=== PATIENT | male | born 1960 | race Caucasian/White ===

== ENCOUNTER 2017-11-20 07:08 | Day surgery (SDC) | payer SELFPAY ==
[2017-11-20] VITALS (8 sets, daily range): BP systolic 106–139; BP diastolic 62–92; PULSE 69–81; RESP 14–16; TEMP 36.3–36.8; O2SAT 97–100; BMI 25.1
--- NOTE | 2017-11-20 08:14 | HP.PCM_ITS ---
Problem List (1) Screening for intestinal cancer Status: Acute History of Present Illness Date of Admission: 11/20/17 The patient is a 57 year old M presents today for screening colonoscopy. He has really never had a previous examination with a colonoscopy. He has no family history of colon cancer or colon polyps. He denies change of bowel habits. No bright red blood per rectum or melena. He enjoys good health. He is not on any chronic medications. He has not had any anesthesia reactions Past Medical History Allergies No Known Allergies Allergy (Verified 11/17/17 09:35) Home Medications: Ambulatory Orders Medication Instructions Recorded [place]-3 Fatty Acids/Fish Oil [Fish 1 each PO DAILY 11/17/17 Oil 1,000 mg Capsule] Vitamin B Complex 1 each PO DAILY 11/17/17 Smoking Status: Never smoker Tobacco Use: Non-smoker Review of Systems Constitutional: Denies: Weight Change Eyes: Denies: Blurred vision, Vision Change HEENT: Denies: Ear Pain, Eye Pain Cardiovascular: Denies: Chest Pain, Claudication Respiratory: Denies: Cough, Shortness of Breath Gastrointestinal: Denies: Hematemesis, Hematochezia Genitourinary: Denies: Dysuria, Hematuria Musculoskeletal: Denies: Leg Pain Skin: Denies: Jaundice Neurological: Denies: Confusion Psychiatric: Denies: Depression Endocrine: Denies: Change in Body Habitus Hematologic/ Lymphatic: Denies: Easy Bleeding VTE Information - Inpt Only VTE Present on Admission: No Patient Problems: Active and Suspected Problems Screening for intestinal cancer (Acute) - Physical Exam General: Alert, Oriented x3, Cooperative, No apparent distress HEENT: Atraumatic Oral: Moist Mucosa Neck: Supple Lungs: Clear to auscultation Cardiovascular: Regular rate Abdomen: Bowel Sounds Present Extremities: No clubbing Skin: No rashes Musculoskeletal: No Tenderness to Palpation of Joints or Extremities Lymphatic: No Cervical, Supraclavicular, or Inguinal Adenopathy Neurological: Cranial nerves II-XII grossly intact Psych/Mental Status: Normal Affect Vital Signs Temp Pulse Resp BP Pulse Ox 97.4 F L 81 14 139/92 H 100 11/20/17 07:36 11/20/17 07:36 11/20/17 07:36 11/20/17 07:36 11/20/17 07:36 Oxygen Delivery Method Room Air Weight: 170 lb 3.15 oz Body Mass Index (BMI) 25.1 Assessment/Plan Active and Suspected Problems Screening for intestinal cancer (Acute) Recommended the patient a screening colonoscopy with possible biopsy or polypectomy is indicated. He is aware of the technique, benefits, risks, alternatives. He has had an opportunity to ask and have questions answered. He has performed his bowel preparation. We will proceed as indicated. Cc: Dr. Rolando Reed M.D., F.A.C.S.
--- NOTE | 2017-11-20 08:39 | PCM.OPRPT ---
Problem List (1) Screening for intestinal cancer Status: Acute Report of Operation Date of Procedure: 11/20/17 Pre-Operative Diagnosis: Screening for intestinal cancer Post-Operative Diagnosis: Normal colonoscopy Surgery/Procedure Performed:: Colonoscopy Description of Surgical Findings:: Timeout and informed consent was obtained. 57-year-old gentleman was taken to the endoscopy suite. He was placed in a left lateral decubitus position. Throughout the procedure he received 1 mg of glucagon and 100 mg of Demerol and 4.5 mg of Versed. Digital rectal exam performed. 3+ enlarged smooth prostate. No mass lesions. Flexible colonoscope inserted the rectum advanced to a tortuous sigmoid colon. With some effort the scope was advanced through the transverse colon with transabdominal pressure to the ascending colon the patient needed to be placed supine to get the scope to go to the cecum. The patient has a elongated very lax colon. The cecum was cecal valve however was achieved. Bowel prep was good. The scope was carefully withdrawn from the cecum ascending colon transverse colon descending colon and sigmoid colon. Other than for the tortuosity no acute findings. The scope was retroflexed within the rectum the anorectal verge inspected this too was not remarkable. Excess fluid and air was aspirated free the procedure was completed he tolerated it well. Impression Normal colonoscopy 3+ enlarged prostate She will be encouraged to follow-up with Dr. Davida Marshall regarding the prostatic hypertrophy. The patient has no personal risk factors and so next screening colonoscopy would be in 10 years. He is not previously had a full colonoscopy Cc: Dr[place] [address]. Scope was inserted at 0819. It was reached at 0831.16. The procedure was completed at 0837.34 Sharif Reed M.D., F.A.C.S. Type of Anesthesia:: IV Sedation
== END 2017-11-20 09:45 | disposition home or self-care (01) ==
LOC: EN 07:09 → AC 07:25
PROVIDERS: Family Provider Internal Medicine; PCP Internal Medicine; Visit Provider Surgery
PROC: 0DJD8ZZ Inspection of Lower Intestinal Tract, Via Natural or Artificial Opening Endoscopic (ICD-10-PCS; CPT 45378; principal; 2017-11-20 08:10)
DX: Z12.11 Encounter for screening for malignant neoplasm of colon (principal); N40.0 Benign prostatic hyperplasia without lower urinary tract symptoms
CPT/HCPCS: 45378; 99152; 99153; J7120; J1610

== ENCOUNTER → 2019-04-26 09:18 | Outpatient (CLI) | payer SELFPAY ==
[2017-11-20 07:36] VITALS: BMI 25.1
[2019-04-26 10:37] LABS: Hematocrit 43.7 % (40-54); Hemoglobin 14.5 g/dL (13.0-16.5); Mean Corp Hgb Conc 33.2 g/dL (32-36); Mean Corpuscular Hgb 30.9 pg (27.0-32.0); Mean Corpuscular Volume 93.2 fL (80-94); Mean Platelet Vol. 8.4 fl (6.2-12.0); Platelet Count 282 K/mm3 (150-450); RBC Distribution Width SD 44.3 fl (35.1-43.9); Red Blood Count 4.69 M/mm3 (4.6-6.2); White Blood Count 6.3 K/mm3 (4.4-11.0)
[2019-04-26 10:58] LABS: Hemoglobin A1c 5.6 % (4.2-6.3)
[2019-04-26 11:37] LABS: ALB/GLOB Ratio 1.1 RATIO (0.9-2.4); AST(SGOT) 30 U/L (15-37); Alanine Aminotransfer ALT/SGPT 35 U/L (16-61); Albumin, Serum 3.6 g/dL (3.2-5.0); Alkaline Phosphatase 39 U/L (45-117); Anion Gap 6 (5-15); BUN 15 mg/dL (7-18); BUN/Creat Ratio 18.9 RATIO (10-20); Calcium,Total 8.5 mg/dL (8.5-10.1); Chloride 105 mmol/L (98-107); Cholesterol 214 mg/dL (200); Creatinine, Serum 0.79 mg/dL (0.70-1.30); EST Glomerular Filtration Rate 106 mL/min (>60); Est Glom Filt Rate - Afr Amer 128 mL/min (>60); Globulin 3.2 g/dL (2.2-4.2); Glucose 95 mg/dL (74-106); High Density Lipoprotein 56 mg/dL; PSA,Total - Annual Screen 1.13 ng/mL (0.00-4.00); Potassium 3.9 mmol/L (3.5-5.1); Protein, Total 6.8 g/dL (6.4-8.2); Sodium Level 139 mmol/L (136-145); Triglycerides 101 mg/dL; Very Low Density Lipoprotein 20 mg/dL (5-40)
[2019-05-02 14:25] LABS: Free T3 2.5 pg/mL (2.18-3.98); T4 Free Direct 0.63 ng/dL (0.76-1.46)
== END ==
LOC: LAB.FUTURE 09:19 → LAB 04-27 07:08
PROVIDERS: Family Provider Internal Medicine; PCP Internal Medicine; Referring Provider Internal Medicine; Visit Provider Internal Medicine
DX: Z00.00 Encounter for general adult medical examination without abnormal findings (principal); Z13.220 Encounter for screening for lipoid disorders; R05 Cough; N40.0 Benign prostatic hyperplasia without lower urinary tract symptoms; Z13.1 Encounter for screening for diabetes mellitus
CPT/HCPCS: 36415; 80053; 80061; 83036; 84153; 84439; 84443; 84481; 85027; G0103

== ENCOUNTER → 2019-06-23 09:01 | Outpatient (CLI) | payer SELFPAY ==
[2017-11-20 07:36] VITALS: BMI 25.1
[2019-06-23 10:15] LABS: T4 Free Direct 0.66 ng/dL (0.76-1.46)
[2019-06-28 14:14] LABS: T3 Total - Triiodothyronine 0.99 ng/mL (0.6-1.81)
== END ==
PROVIDERS: Family Provider Internal Medicine; PCP Internal Medicine; Referring Provider Internal Medicine; Visit Provider Internal Medicine
DX: R79.89 Other specified abnormal findings of blood chemistry (principal)
CPT/HCPCS: 36415; 84439; 84443; 84480

== ENCOUNTER → 2019-07-07 08:50 | Outpatient (CLI) | payer SELFPAY ==
--- NOTE | 2019-07-07 08:55 | US_ITS ---
STUDY: THYROID ULTRASOUND REASON FOR EXAM: Male, 59 years old. HYPOTHYROIDISM TECHNIQUE: Ultrasound evaluation of the thyroid was performed with real-time and static taylor-scale imaging. COMPARISON: None. FINDINGS: RIGHT LOBE: The right lobe of the thyroid gland measures 4.2 x 1.0 x 1.4 cm. There is a homogeneous echotexture. There is a 1.0 x 0.6 x 0.6 cm simple cyst within the lower pole of the right lobe of the thyroid gland. LEFT LOBE: The left lobe of the thyroid gland measures 3.8 x 1.1 x 1.3 cm. There is a homogeneous echotexture. There are no demonstrated solid, cystic or complex lesions. ISTHMUS: The isthmus measures 3.0 millimeters. US/Thyroid IMPRESSION: No solid nodules identified. 1.0 x 0.6 x 0.6 cm simple cyst within the right lobe of the thyroid gland. Electronically Signed: Joyce Sherman MD at 17:08 EST Tel , Service support ,
== END ==
PROVIDERS: Family Provider Internal Medicine; PCP Internal Medicine; Referring Provider Internal Medicine; Visit Provider Internal Medicine
DX: E03.9 Hypothyroidism, unspecified (principal)
CPT/HCPCS: 76536

== ENCOUNTER → 2019-08-12 09:25 | Outpatient (CLI) | payer SELFPAY ==
--- NOTE | 2019-08-12 09:32 | RAD_ITS ---
HISTORY: COUGH X4-5 MONTHS ADDITIONAL HISTORY: None provided. COMPARISON: None TECHNIQUE: Frontal and lateral chest radiographs. Number of images including paperwork: 2 FINDINGS: LUNGS AND PLEURA: No consolidation, mass or pleural effusion. Peribronchial thickening. CARDIAC SILHOUETTE: Unremarkable. MEDIASTINUM AND LAURIE: Unremarkable. UPPER ABDOMEN: Moderate amount of colonic stool in the visualized abdomen. SKELETON AND SOFT TISSUES: No acute findings. OTHER DEVICES AND HARDWARE: Right humeral head suture anchors. RAD/Chest PA and Lateral IMPRESSION: Peribronchial thickening as can be seen with bronchitis and airways disease. at 0040 Reported and signed by: Alma Dixon MD Electronically Signed: Alma Dixon MD at 0:40 EST Tel , Service support ,
== END ==
PROVIDERS: PCP Internal Medicine; Referring Provider Otolaryngology; Visit Provider Otolaryngology
DX: R05 Cough (principal)
CPT/HCPCS: 71046

== ENCOUNTER → 2019-12-09 14:16 | Outpatient (CLI) | payer SELFPAY ==
[2017-11-20 07:36] VITALS: BMI 25.1
[2019-12-09 16:09] LABS: Free T3 2.7 pg/mL (2.18-3.98); T4 Free Direct 0.89 ng/dL (0.76-1.46); Thyroid Stim Hormone (TSH) 4.61 uIU/mL (0.358-3.74)
== END ==
PROVIDERS: Family Provider Internal Medicine; PCP Internal Medicine; Referring Provider Internal Medicine; Visit Provider Internal Medicine
DX: E03.9 Hypothyroidism, unspecified (principal)
CPT/HCPCS: 36415; 84439; 84443; 84481

== ENCOUNTER → 2020-09-25 14:58 | Outpatient (CLI) | payer SELFPAY ==
[2020-09-25 13:29] VITALS: BMI 26.6
[2020-09-25 16:59] LABS: Absolute Lymphocyte Count 2.38 X10^3/uL (0.83-4.51); Absolute Neutrophil Count 3.8 X10^3/uL (2.0-7.7); Basophil# 0.04 X10^3/uL; Basophil% 0.6 % (0-1); Eosinophil# 0.06 X10^3/uL; Eosinophils% 0.9 % (0-5); Hemoglobin 14.9 g/dL (13.0-16.5); Lymphocyte # 2.38 X10^3/ul (4.0); Lymphocyte % 34.7 % (19-41); Mean Corp Hgb Conc 33.1 g/dL (32-36); Mean Corpuscular Hgb 30.3 pg (27.0-32.0); Mean Corpuscular Volume 91.5 fL (80-94); Mean Platelet Vol. 8.6 fl (6.2-12.0); Monocyte# 0.59 X10^3/uL; Monocyte% 8.6 % (0-10); NRBC Flagged by Analyzer 0 % (0-5); Neutrophil # 3.77 X10^3/uL (2.7-7.7); Neutrophil % 55.1 % (47-70); Platelet Count 320 K/mm3 (150-450); RBC Distribution Width CV 12.9 % (11.6-14.6); RBC Distribution Width SD 43.2 fl (35.1-43.9); Red Blood Count 4.92 M/mm3 (4.6-6.2); White Blood Count 6.9 K/mm3 (4.4-11.0)
[2020-09-25 17:17] LABS: Vitamin D,25 Hydroxy 18.8 ng/mL
[2020-09-25 17:21] LABS: ALB/GLOB Ratio 1.2 RATIO (0.9-2.4); AST(SGOT) 41 U/L (15-37); Alanine Aminotransfer ALT/SGPT 41 U/L (16-61); Alkaline Phosphatase 56 U/L (45-117); Anion Gap 5 (5-15); BUN 11 mg/dL (7-18); BUN/Creat Ratio 13.3 RATIO (10-20); Calcium,Total 8.9 mg/dL (8.5-10.1); Chloride 103 mmol/L (98-107); Cholesterol 244 mg/dL (200); Creatinine, Serum 0.83 mg/dL (0.70-1.30); EST Glomerular Filtration Rate 100 mL/min (>60); Est Glom Filt Rate - Afr Amer 122 mL/min (>60); Free T3 2.4 pg/mL (2.18-3.98); Globulin 3.4 g/dL (2.2-4.2); Glucose 88 mg/dL (74-106); High Density Lipoprotein 55 mg/dL; PSA,Total - Annual Screen 1.39 ng/mL (0.00-4.00); Potassium 4.5 mmol/L (3.5-5.1); Protein, Total 7.4 g/dL (6.4-8.2); Sodium Level 137 mmol/L (136-145); T4 Free Direct 0.68 ng/dL (0.76-1.46); Thyroid Stim Hormone (TSH) 9.41 uIU/mL (0.358-3.74); Triglycerides 110 mg/dL; Very Low Density Lipoprotein 22 mg/dL (5-40)
== END ==
PROVIDERS: PCP Internal Medicine; Referring Provider Internal Medicine; Visit Provider Internal Medicine
DX: E03.9 Hypothyroidism, unspecified (principal); Z12.5 Encounter for screening for malignant neoplasm of prostate; Z13.220 Encounter for screening for lipoid disorders
CPT/HCPCS: 36415; 80053; 80061; 82306; 84153; 84439; 84443; 84481; 85025; G0103

== ENCOUNTER → 2023-04-08 | Outpatient (CLI) | payer SELFPAY ==
[2023-04-08 09:41] LABS: Absolute Lymphocyte Count 2.31 X10^3/uL (0.83-4.51); Absolute Neutrophil Count 3.1 X10^3/uL (2.0-7.7); Basophil# 0.03 X10^3/uL; Basophil% 0.5 % (0-1); Eosinophils% 1.6 % (0-5); Hematocrit 45.9 % (40-54); Hemoglobin 15.2 g/dL (13.0-16.5); Lymphocyte # 2.31 X10^3/ul (0.83-4.51); Lymphocyte % 37.3 % (19-41); Mean Corp Hgb Conc 33.1 g/dL (32-36); Mean Corpuscular Hgb 30.8 pg (27.0-32.0); Mean Corpuscular Volume 93.1 fL (80-94); Mean Platelet Vol. 8.5 fl (6.2-12.0); Monocyte# 0.67 X10^3/uL; Monocyte% 10.8 % (0-10); NRBC Flagged by Analyzer 0 % (0-5); Neutrophil # 3.07 X10^3/uL (2.7-7.7); Neutrophil % 49.5 % (47-70); Platelet Count 304 K/mm3 (150-450); RBC Distribution Width CV 13.1 % (11.6-14.6); RBC Distribution Width SD 44.7 fl (35.1-43.9); Red Blood Count 4.93 M/mm3 (4.6-6.2); White Blood Count 6.2 K/mm3 (4.4-11.0)
[2023-04-08 10:06] LABS: Vitamin D,25 Hydroxy 31.6 ng/mL
[2023-04-08 10:13] LABS: ALB/GLOB Ratio 1.1 RATIO (0.9-2.4); AST(SGOT) 38 U/L (15-37); Alanine Aminotransfer ALT/SGPT 48 U/L (16-61); Albumin, Serum 3.8 g/dL (3.2-5.0); Alkaline Phosphatase 46 U/L (45-117); Anion Gap 2 (5-15); BUN 18 mg/dL (7-18); BUN/Creat Ratio 19.1 RATIO (10-20); Calcium,Total 9.1 mg/dL (8.5-10.1); Chloride 106 mmol/L (98-107); Cholesterol 277 mg/dL (200); Creatinine, Serum 0.94 mg/dL (0.70-1.30); EST Glomerular Filtration Rate 86 mL/min (>60); Est Glom Filt Rate - Afr Amer 104 mL/min (>60); Free T3 2.6 pg/mL (2.18-3.98); Globulin 3.4 g/dL (2.2-4.2); Glucose 99 mg/dL (74-106); High Density Lipoprotein 57 mg/dL; PSA,Total - Annual Screen 2.42 ng/mL (0.00-4.00); Potassium 4.5 mmol/L (3.5-5.1); Protein, Total 7.2 g/dL (6.4-8.2); Sodium Level 137 mmol/L (136-145); T4 Free Direct 0.84 ng/dL (0.76-1.46); Thyroid Stim Hormone (TSH) 6.29 uIU/mL (0.358-3.74); Triglycerides 71 mg/dL; Very Low Density Lipoprotein 14 mg/dL (5-40)
== END | disposition home or self-care (01) ==
PROVIDERS: PCP Internal Medicine; Referring Provider Internal Medicine; Visit Provider Internal Medicine
DX: Z00.00 Encounter for general adult medical examination without abnormal findings (principal); E55.9 Vitamin D deficiency, unspecified; E03.9 Hypothyroidism, unspecified; Z13.220 Encounter for screening for lipoid disorders; Z12.5 Encounter for screening for malignant neoplasm of prostate
CPT/HCPCS: 36415; 80053; 80061; 82306; 84153; 84439; 84443; 84481; 85025; G0103

== ENCOUNTER → 2023-08-13 | Outpatient (CLI) | payer SELFPAY ==
[2023-08-13 09:53] LABS: Free T3 2.4 pg/mL (2.18-3.98); T4 Free Direct 0.63 ng/dL (0.76-1.46); Thyroid Stim Hormone (TSH) 7.84 uIU/mL (0.358-3.74)
== END | disposition home or self-care (01) ==
PROVIDERS: PCP Internal Medicine; Referring Provider Internal Medicine; Visit Provider Internal Medicine
DX: E03.9 Hypothyroidism, unspecified (principal)
CPT/HCPCS: 36415; 84439; 84443; 84481

== ENCOUNTER → 2024-01-01 | Outpatient (CLI) | payer MEDICARE, SELFPAY ==
[2024-01-01 09:00] LABS: Free T3 2.6 pg/mL (2.18-3.98); T4 Free Direct 0.77 ng/dL (0.76-1.46); Thyroid Stim Hormone (TSH) 5.78 uIU/mL (0.358-3.74)
== END | disposition home or self-care (01) ==
PROVIDERS: PCP Internal Medicine; Referring Provider Internal Medicine; Visit Provider Internal Medicine
DX: E03.9 Hypothyroidism, unspecified (principal)
CPT/HCPCS: 36415; 84439; 84443; 84481

== ENCOUNTER → 2024-05-06 | Outpatient (CLI) | payer MEDICARE, SELFPAY ==
[2024-05-06 06:48] LABS: Absolute Lymphocyte Count 2.26 X10^3/uL (0.83-4.51); Absolute Neutrophil Count 3.2 X10^3/uL (2.0-7.7); Basophil# 0.03 X10^3/uL; Basophil% 0.5 % (0-1); Eosinophil# 0.14 X10^3/uL; Eosinophils% 2.3 % (0-5); Hematocrit 45.2 % (40-54); Hemoglobin 14.9 g/dL (13.0-16.5); Lymphocyte # 2.26 X10^3/ul (0.83-4.51); Lymphocyte % 36.3 % (19-41); Mean Corpuscular Hgb 30.4 pg (27.0-32.0); Mean Corpuscular Volume 92.2 fL (80-94); Mean Platelet Vol. 8.3 fl (6.2-12.0); Monocyte% 9.6 % (0-10); NRBC Flagged by Analyzer 0 % (0-5); Neutrophil # 3.18 X10^3/uL (2.7-7.7); Neutrophil % 51.1 % (47-70); Platelet Count 279 K/mm3 (150-450); RBC Distribution Width CV 13.1 % (11.6-14.6); RBC Distribution Width SD 44.3 fl (35.1-43.9); White Blood Count 6.2 K/mm3 (4.4-11.0)
[2024-05-06 08:44] LABS: Vitamin D,25 Hydroxy 25.8 ng/mL
[2024-05-06 09:21] LABS: ALB/GLOB Ratio 1.2 RATIO (0.9-2.4); AST(SGOT) 30 U/L (15-37); Alanine Aminotransfer ALT/SGPT 40 U/L (16-61); Albumin, Serum 3.9 g/dL (3.2-5.0); Alkaline Phosphatase 48 U/L (45-117); Anion Gap 6 (5-15); BUN 20 mg/dL (7-18); BUN/Creat Ratio 20.7 RATIO (10-20); Calcium,Total 9.4 mg/dL (8.5-10.1); Chloride 108 mmol/L (98-107); Cholesterol 254 mg/dL (200); Creatinine, Serum 0.97 mg/dL (0.70-1.30); EST Glomerular Filtration Rate 83 mL/min (>60); Est Glom Filt Rate - Afr Amer 100 mL/min (>60); Free T3 2.7 pg/mL (2.18-3.98); Globulin 3.2 g/dL (2.2-4.2); Glucose 93 mg/dL (74-106); High Density Lipoprotein 55 mg/dL; Potassium 4.3 mmol/L (3.5-5.1); Protein, Total 7.1 g/dL (6.4-8.2); Sodium Level 139 mmol/L (136-145); T4 Free Direct 0.87 ng/dL (0.76-1.46); Triglycerides 103 mg/dL; Very Low Density Lipoprotein 21 mg/dL (5-40)
== END | disposition home or self-care (01) ==
PROVIDERS: PCP Internal Medicine; Referring Provider Internal Medicine; Visit Provider Internal Medicine
DX: Z00.00 Encounter for general adult medical examination without abnormal findings (principal); E03.9 Hypothyroidism, unspecified; E55.9 Vitamin D deficiency, unspecified; Z12.5 Encounter for screening for malignant neoplasm of prostate; E78.5 Hyperlipidemia, unspecified; Z13.220 Encounter for screening for lipoid disorders
CPT/HCPCS: 36415; 80053; 80061; 82306; 84153; 84439; 84443; 84481; 85025; G0103

== ENCOUNTER → 2024-11-14 | Outpatient (CLI) | payer MEDICARE, SELFPAY ==
[2024-11-14 08:23] LABS: Free T3 2.7 pg/mL (2.18-3.98)
== END | disposition home or self-care (01) ==
PROVIDERS: PCP Internal Medicine; Referring Provider Internal Medicine; Visit Provider Internal Medicine
DX: E03.9 Hypothyroidism, unspecified (principal)
CPT/HCPCS: 36415; 84439; 84443; 84481

== ENCOUNTER → 2025-05-29 | Outpatient (CLI) | payer MEDICARE, SELFPAY ==
--- OUTSIDE RECORDS SUMMARY | 2025-05-29 06:38 | XMS RPT_ITS | CCD ---
Author Organization [facility] Care Team Providers Care Breast Puller Name Role Phone NICOLLE AUDRA (VIDEO GAME CREATOR) Unavailable Unavailable Davida Marshall Primary Care Unavailable Davida Marshall Attending Unavailable Davida Marshall Primary Care Unavailable Davida Marshall Attending Unavailable Davida Marshall Attending Unavailable Davida Marshall Referring Unavailable Davida Marshall Primary Care Unavailable Davida Marshall Primary Care Unavailable Davida Marshall Attending Unavailable Davida Marshall Referring Unavailable Davida Marshall Primary Care Unavailable Davida Marshall Attending Unavailable Davida Marshall Referring Unavailable Davida Marshall Primary Care Unavailable Davida Marshall Attending Unavailable Davida Marshall Referring Unavailable Medications Current Medications Medication Drug Class(es) Dates Sig (Normalized) Sig (Original) levothyroxine sodium 0.1 mg oral tablet (10 sources) l-Thyroxine Start: 08-13-2023 take 100 ug by mouth once daily Levothyroxine Active 100 MCG PO DAILY August 13, 2023 2:43pm Start: 04-16-2023 End: 08-13-2023 take 88 ug by mouth once daily Levothyroxine Discontin ued 88 MCG PO DAILY April 16, 2023 8:53am August 13, 2023 2:44pm Start: 09-25-2020 End: 04-16-2023 take 50 ug by mouth once daily Levothyroxine Discontin ued 50 MCG PO DAILY July 25, 2022 3:47pm April 16, 2023 8:54am Completed/Discontinued Medications Medication Drug Class(es) Dates Sig (Normalized) Sig (Original) [place]-3 Fatty Acids-Fish Oil (2 sources) Start: 11-17-2017 End: 09-25-2020 [place]-3 Fatty Acids-Fish Oil Discontinued 1 EACH PO DAILY November 16, 2017 11:00pm September 25, 2020 12:34pm Start: 11-17-2017 End: 09-25-2020 [place]-3 Fatty Acids-Fish Oil Discontinued 1 EACH PO DAILY November 17, 2017 12:00am September 25, 2020 1:34pm Vitamin B Complex (2 sources) Start: 11-17-2017 End: 09-25-2020 Vitamin B Complex Discontinu ed 1 EACH PO DAILY November 16, 2017 11:00pm September 25, 2020 12:34pm Start: 11-17-2017 End: 09-25-2020 Vitamin B Complex Discontinu ed 1 EACH PO DAILY November 17, 2017 12:00am September 25, 2020 1:34pm Problems Active Problems Problem Classification Problem Date Documented Da te Episodic/Chronic Blindness and vision defects (1 source) Visual disturbance; Translations: [Unspecified visual disturbance] 04-16-2023 Episodic Disorders of lipid metabolism (2 sources) Hyperlipidemia, unspecified; Translations: [Hyperlipidemia, unspecified] Onset: 05-11-2024 Chronic Nutritional deficiencies (1 source) Vitamin D deficiency, unspecified; Translations: [Vitamin D deficiency, unspecified] Onset: 05-11-2024 Chronic Open wounds of extremities (2 sources) Laceration of elbow; Translations: [Laceration with foreign body of unspecified elbow, initial encounter] 11-20-2017 Episodic Superficial injury; contusion (2 sources) Contusion, hip and thigh; Translations: [Contusion of unspecified hip, initial encounter] 11-20-2017 Episodic Thyroid disorders (3 sources) Hypothyroidism; Translations: [Hypothyroidism, unspecified] Onset: 11-18-2024 09-25-2020 Chronic Past or Other Problems Problem Classification Problem Date Documented Da te Episodic/Chronic Other screening for suspected conditions (not mental disorders or infectious disease) (3 sources) Patient encounter status; Translations: [Encounter for screening for malignant neoplasm of intestinal tract, unspecified] Onset: 05-11-2024 11-20-2017 Episodic Results Test Name Value Interpretation Reference Range Facility Free T3on 11-14-2024 Free T3 [Mass/Vol] 2.7 pg/mL Normal 2.18-3.98 [facility] Comment on above: Performed By: #### L 501.61699, L501.9520, L506.0400 #### [facility] [address] [place], [address] T4 Free Directon 11-14-2024 T4 FREE DIRECT 1.30 ng/dL Normal 0.76-1.46 [facility] Comment on above: Performed By: #### L 501.64495, L501.9520, L506.0400 #### [facility] [address] [place], [address] Thyroid Stim Hormone (TSH)on 11-14-2024 TSH 3.150 uIU/mL Normal 0.300-4.200 [facility] Comment on above: Performed By: #### L 501.78768, L501.9520, L506.0400 #### [facility] [address] [place], [address] MR/Eric 05-11-2024 /[email or web address].[facility] [address] [facility] [place] [address] OFFICE VISIT Date of Service: 05/11/24 MR#: [id number] Acct: [id number] Name: LEXUS REIS Rep #: [id number] : 1960 Provider: Dr. Davida cassidy MD Age/Sex: 64/M Location: [facility] Status: Signed Intake Vital Signs 01/06/24 08:25 05/11/24 08:32 Height 5 ft 9.5 in 5 ft 9.5 in Weight: 179 lb 185 lb 8 oz BMI 26.0 27.0 BP 123/76 H 134/80 H Blood Pressure Location Lt brachial Rt brachial Position Sitting Sitting Respiration 16 Pulse 73 66 Pulse Source Monitor Monitor Temp 98.6 F 98.0 F Temp Source Temporal Temporal Pulse Oximetry (%) 96 96 Oxygen Delivery Method room air room air Intake Visit Reasons: Annual/Physical Chief Complaint: annual/physical Drug Abuse Social Worker Required: No Accompanied by: Self Is patient in pain?: No Allergies No Known Allergies Allergy (Verified 05/11/24 08:29) Medications ???Medication ???Instructions ???Recorded ???Confirmed ???Type levothyroxine 100 mcg tablet 100 mcg PO DAILY #90 tabs 04/20/24 05/11/24 Rx Have you fallen in the past year?: No PFSH Medical History Periorbital dermatitis Hypothyroidism Surgical History History of shoulder surgery Family History Other No pertinent family history Social History Smoking Status: Never smoker alcohol intake: never substance use type: does not use what type of physical activity do you participate in: bicycling frequency: 3-4 times per week HPI HPI Chief Complaint: annual/physical Details: LEXUS REIS, is a 64 M who presents to the office today for annual wellness checkup. 64-year-old gentleman who has a history of hypothyroidism, on levothyroxine 100 mcg daily. He has been stable on that regimen. In the spring, we did need to make an adjustment. His TSH remains just a little bit high at this point but better than it was a few months ago and we have opted not to change dose at this point but the monitor. His thyroid hormones are normal ranges. Aside from that he takes no routine long-term medications and has no other longstanding medical problems. He continues to bicycle with about 2 longer rides per week, and several shorter rides. It is a bit less than it had been in the past but he does continue to bicycle ride regularly. He has no untoward symptoms during exercise. Otherwise is feeling well. Review of systems per chart. Patient denies chest pain, chest tightness, shortness of breath wheeze cough or congestion. No fever or chills. No nausea or vomiting. Appetite has been good. Bowel movements are regular. No dysuria, urgency or frequency. No nocturia symptoms. Physical exam. Vital signs on chart. PERRLA. Sclera are clear. TMs are unremarkable with normal light reflexes. Canals are unremarkable. Posterior pharynx is unremarkable. Good dentition. No cervical or supraclavicular lymph nodes enlarged or tender. No clear thyromegaly. No thyroid nodules readily palpable. Lungs are without wheeze, rhonchi, rales. No E/A changes are heard. Heart is regular. Not tachycardic. No clear murmur, rub, or gallop is identified. The abdomen is soft. Bowel sounds are present. No significant leg edema. Cranial nerve examination 2 through 12 are grossly unremarkable nonlateralizing. Deep tendon reflexes are 2/4 and symmetric at the bicep, tricep, Achilles, patella. No ankle clonus. No obvious rashes. No obvious significant skin lesions are identified. ROS Const Constitutional: No body ache, chills, excessive sweating, fatigue, fever(s), frequent falls, headache(s), snoring, weakness or change in appetite Eyes Eyes: No blurry vision, change in vision, eye pain or Light sensitivity ENT ENT: No abnormal hearing, ear or mastoid pain, tinnitus, nasal congestion, headache(s), neck pain or sore throat Resp Respiratory: No cough, shortness of breath, snoring or wheezing Cardio Cardiology: No chest pain at rest, chest pain with exertion, excessive sweating, dyspnea on exertion, lightheadedness, orthopnea or palpitations Gastro GI: No abdominal pain, change in bowel habits, constipation, cramping, diarrhea, nausea/dyspepsia or vomiting Genitourinary Male: No burning urination, painful urination, urinary incontinence or urinary frequency Musc Musculoskeletal: No abnormal gait, joint pain, back pain, limited range of motion, muscle weakness, neck pain or numbness Skin Skin: No dry skin, redness, lesions, itchy eyes, rash or wounds Neuro Neurology: No abnormal gait, abnormal hearing, weakness, frequent falls, headache(s), memory loss or numbness (more content not included)... Normal [facility] CBC W/Diff, Automatedon 11-0 Absolute Lymph 2.26 X10 3/uL Normal 0.83-4.51 [facility] Comment on above: Performed By: #### L 501.76473, L501.9520, L501.9910, L506.0400, L100.0100, L506.1000, L500.4050, L500.4100 #### [facility] [address] [place], [address] Absolute Neut 3.2 X10 3/uL Normal 2.0-7.7 [facility] Comment on above: Performed By: #### L 501.81589, L501.9520, L501.9910, L506.0400, L100.0100, L506.1000, L500.4050, L500.4100 #### [facility] [address] [place], [address] Basophils/100 WBC (Bld) 0.5 % Normal 0-1 [facility] Comment on above: Performed By: #### L 501.16298, L501.9520, L501.9910, L506.0400, L100.0100, L506.1000, L500.4050, L500.4100 #### [facility] [address] [place], [address] Eosinophils/100 WBC (Bld) 2.3 % Normal 0-5 [facility] Comment on above: Performed By: #### L 501.09774, L501.9520, L501.9910, L506.0400, L100.0100, L506.1000, L500.4050, L500.4100 #### [facility] [address] [place], [address] Erythrocyte distribution width (RBC) [Ratio] 13.1 % Normal 11.6-14.6 [facility] Comment on above: Performed By: #### L 501.32922, L501.9520, L501.9910, L506.0400, L100.0100, L506.1000, L500.4050, L500.4100 #### [facility] [address] [place], [address] Hematocrit (Bld) [Volume fraction] 45.2 % Normal 40-54 [facility] Comment on above: Performed By: #### L 501.29204, L501.9520, L501.9910, L506.0400, L100.0100, L506.1000, L500.4050, L500.4100 #### [facility] [address] [place], [address] Hemoglobin (Bld) [Mass/Vol] 14.9 g/dL Normal 13.0-16.5 [facility] Comment on above: Performed By: #### L 501.61212, L501.9520, L501.9910, L506.0400, L100.0100, L506.1000, L500.4050, L500.4100 #### [facility] [address] [place], [address] IG% 0.200 Normal 0.0-0.9 [facility] Comment on above: Result Comment: IG% - Immature Granulocytes (promyelocytes, myelocytes and metamyelocytes) > 1% indicates that a LEFT SHIFT is Present. Performed By: #### L 501.67321, L501.9520, L501.9910, L506.0400, L100.0100, L506.1000, L500.4050, L500.4100 #### [facility] [address] [place], [address] Lymphocytes/100 WBC (Bld) 36.3 % Normal 19-41 [facility] Comment on above: Performed By: #### L 501.15353, L501.9520, L501.9910, L506.0400, L100.0100, L506.1000, L500.4050, L500.4100 #### [facility] [address] [place], [address] MCH (RBC) [Entitic mass] 30.4 pg Normal 27.0-32.0 [facility] Comment on above: Performed By: #### L 501.24762, L501.9520, L501.9910, L506.0400, L100.0100, L506.1000, L500.4050, L500.4100 #### [facility] [address] [place], [address] MCHC (RBC) [Mass/Vol] 33.0 g/dL Normal 32-36 [facility] Comment on above: Performed By: #### L 501.64466, L501.9520, L501.9910, L506.0400, L100.0100, L506.1000, L500.4050, L500.4100 #### [facility] [address] [place], [address] MCV (RBC) [Entitic vol] 92.2 fL Normal 80-94 [facility] Comment on above: Performed By: #### L 501.10185, L501.9520, L501.9910, L506.0400, L100.0100, L506.1000, L500.4050, L500.4100 #### [facility] [address] [place], [address] Monocytes/100 WBC (Bld) 9.6 % Normal 0-10 [facility] Comment on above: Performed By: #### L 501.21795, L501.9520, L501.9910, L506.0400, L100.0100, L506.1000, L500.4050, L500.4100 #### [facility] [address] [place], [address] Neutrophils/100 WBC (Bld) 51.1 % Normal 47-70 [facility] Comment on above: Performed By: #### L 501.41616, L501.9520, L501.9910, L506.0400, L100.0100, L506.1000, L500.4050, L500.4100 #### [facility] [address] [place], [address] Nucleated RBC (Bld) [#/Vol] 0 10*3/uL Normal 0-5 [facility] Comment on above: Performed By: #### L 501.02595, L501.9520, L501.9910, L506.0400, L100.0100, L506.1000, L500.4050, L500.4100 #### [facility] [address] [place], [address] Platelet mean volume (Bld) [Entitic vol] 8.3 fL Normal 6.2-12.0 [facility] Comment on above: Performed By: #### L 501.45846, L501.9520, L501.9910, L506.0400, L100.0100, L506.1000, L500.4050, L500.4100 #### [facility] [address] [place], [address] Platelets (Bld) [#/Vol] 279 10*3/uL Normal 150-450 [facility] Comment on above: Performed By: #### L 501.20731, L501.9520, L501.9910, L506.0400, L100.0100, L506.1000, L500.4050, L500.4100 #### [facility] [address] [facility] [place], [address] RBC (Bld) [#/Vol] 4.90 10*6/uL Normal 4.6-6.2 [facility] Comment on above: Performed By: #### L 501.41686, L501.9520, L501.9910, L506.0400, L100.0100, L506.1000, L500.4050, L500.4100 #### [facility] [address] [place], [address] RDW SD 44.3 fl High 35.1-43.9 [facility] Comment on above: Performed By: #### L 501.51427, L501.9520, L501.9910, L506.0400, L100.0100, L506.1000, L500.4050, L500.4100 #### [facility] [address] [place], [address] WBC (Bld) [#/Vol] 6.2 10*3/uL Normal 4.4-11.0 [facility] Comment on above: Performed By: #### L 501.42515, L501.9520, L501.9910, L506.0400, L100.0100, L506.1000, L500.4050, L500.4100 #### [facility] [address] [place], [address] Comprehensive Metabolic Prof ilon 05-06-2024 Albumin [Mass/Vol] 3.9 g/dL Normal 3.2-5.0 [facility] Comment on above: Order Comment: Labco rp: OxLDL [id number] Performed By: #### L 501.88245, L501.9520, L501.9910, L506.0400, L100.0100, L506.1000, L500.4050, L500.4100 #### [facility] [address] [place], [address] Albumin/Globulin [Mass ratio] 1.2 {ratio} Normal 0.9-2.4 [facility] Comment on above: Order Comment: Labco rp: OxLDL [id number] Performed By: #### L 501.12700, L501.9520, L501.9910, L506.0400, L100.0100, L506.1000, L500.4050, L500.4100 #### [facility] [address] [place], [address] ALK P 48 U/L Normal 45-117 [facility] Comment on above: Order Comment: Labco rp: OxLDL [id number] Performed By: #### L 501.41058, L501.9520, L501.9910, L506.0400, L100.0100, L506.1000, L500.4050, L500.4100 #### [facility] [address] [place], [address] ALT [Catalytic activity/Vol] 40 U/L Normal 16-61 [facility] Comment on above: Order Comment: Labco rp: OxLDL [id number] Performed By: #### L 501.41314, L501.9520, L501.9910, L506.0400, L100.0100, L506.1000, L500.4050, L500.4100 #### [facility] [address] [facility] [place], [place], [id number] (569) AST [Catalytic activity/Vol] 30 U/L Normal 15-37 [facility] Comment on above: Order Comment: Labco rp: OxLDL [id number] Performed By: #### L 501.42928, L501.9520, L501.9910, L506.0400, L100.0100, L506.1000, L500.4050, L500.4100 #### [facility] [address] [facility] [place], [address] Bilirubin [Mass/Vol] 0.70 mg/dL Normal 0.20-1.00 [facility] Comment on above: Order Comment: Labco rp: OxLDL [id number] Result Comment: For patients on eltrombopag therapy, use of Dimension [place] TBIL is not recommended. Performed By: #### L 501.51286, L501.9520, L501.9910, L506.0400, L100.0100, L506.1000, L500.4050, L500.4100 #### [facility] [address] [place], [address] BUN/CRE 20.7 RATIO High 10-20 [facility] Comment on above: Order Comment: Labco rp: OxLDL [id number] Performed By: #### L 501.82483, L501.9520, L501.9910, L506.0400, L100.0100, L506.1000, L500.4050, L500.4100 #### [facility] [address] [place], [address] CA,Total 9.4 mg/dL Normal 8.5-10.1 [facility] Comment on above: Order Comment: Labco rp: OxLDL [id number] Performed By: #### L 501.98260, L501.9520, L501.9910, L506.0400, L100.0100, L506.1000, L500.4050, L500.4100 #### [facility] [address] [place], [address] Chloride [Moles/Vol] 108 mmol/L High 98-107 [facility] Comment on above: Order Comment: Labco rp: OxLDL [id number] Performed By: #### L 501.41790, L501.9520, L501.9910, L506.0400, L100.0100, L506.1000, L500.4050, L500.4100 #### [facility] [address] [facility] [place], [address] CO2 [Moles/Vol] 26.0 mmol/L Normal 21.0-32.0 [facility] Comment on above: Order Comment: Labco rp: OxLDL [id number] Performed By: #### L 501.52200, L501.9520, L501.9910, L506.0400, L100.0100, L506.1000, L500.4050, L500.4100 #### [facility] [address] [place], [address] Creatinine [Mass/Vol] 0.97 mg/dL Normal 0.70-1.30 [facility] Comment on above: Order Comment: Labco rp: OxLDL [id number] Result Comment: The validity of the calculated GFR GFRAA in patients over 70 years has not been determined. Clinical correlation is essential. Performed By: #### L 501.32082, L501.9520, L501.9910, L506.0400, L100.0100, L506.1000, L500.4050, L500.4100 #### [facility] [address] [place], [address] EST GFR - AA 100 mL/min Normal >60 [facility] Comment on above: Order Comment: Labco rp: OxLDL [id number] Result Comment: Afri can Turkmen GFR Calc Performed By: #### L 501.33110, L501.9520, L501.9910, L506.0400, L100.0100, L506.1000, L500.4050, L500.4100 #### [facility] [address] [place], [place], [id number] (602) GAP 6 Normal 5-15 [facility] Comment on above: Order Comment: Labco rp: OxLDL [id number] Performed By: #### L 501.44144, L501.9520, L501.9910, L506.0400, L100.0100, L506.1000, L500.4050, L500.4100 #### [facility] [address] [place], [place], [id number] (892) GFR/1.73 sq M.predicted among non-blacks MDRD (S/P/Bld) [Vol rate/Area] 83 mL/min/{1.73_m2} Normal >60 [facility] Comment on above: Order Comment: Labco rp: OxLDL [id number] Result Comment: Non- GFR Calc Performed By: #### L 501.46501, L501.9520, L501.9910, L506.0400, L100.0100, L506.1000, L500.4050, L500.4100 #### [facility] [address] [place], [place], [id number] (591) Globulin (S) [Mass/Vol] 3.2 g/dL Normal 2.2-4.2 [facility] Comment on above: Order Comment: Labco rp: OxLDL [id number] Performed By: #### L 501.91224, L501.9520, L501.9910, L506.0400, L100.0100, L506.1000, L500.4050, L500.4100 #### [facility] [address] [place], [address] Glucose [Mass/Vol] 93 mg/dL Normal 74-106 [facility] Comment on above: Order Comment: Labco rp: OxLDL [id number] Performed By: #### L 501.43634, L501.9520, L501.9910, L506.0400, L100.0100, L506.1000, L500.4050, L500.4100 #### [facility] [address] [place], [address] Potassium [Moles/Vol] 4.3 mmol/L Normal 3.5-5.1 [facility] Comment on above: Order Comment: Labco rp: OxLDL [id number] Performed By: #### L 501.95942, L501.9520, L501.9910, L506.0400, L100.0100, L506.1000, L500.4050, L500.4100 #### [facility] [address] [place], [address] Sodium [Moles/Vol] 139 mmol/L Normal 136-145 [facility] Comment on above: Order Comment: Labco rp: OxLDL [id number] Performed By: #### L 501.07225, L501.9520, L501.9910, L506.0400, L100.0100, L506.1000, L500.4050, L500.4100 #### [facility] [address] [place], [address] T PROT 7.1 g/dL Normal 6.4-8.2 [facility] Comment on above: Order Comment: Labco rp: OxLDL [id number] Performed By: #### L 501.21847, L501.9520, L501.9910, L506.0400, L100.0100, L506.1000, L500.4050, L500.4100 #### [facility] [address] [place], [place], [id number] Urea nitrogen [Mass/Vol] 20 mg/dL High 7-18 [facility] Comment on above: Order Comment: Labco rp: OxLDL [id number] Performed By: #### L 501.53017, L501.9520, L501.9910, L506.0400, L100.0100, L506.1000, L500.4050, L500.4100 #### [facility] [address] [place], [place], [id number] [phone] Free T3on 05-06-2024 Free T3 [Mass/Vol] 2.7 pg/mL Normal 2.18-3.98 [facility] Comment on above: Order Comment: Labco rp: OxLDL [id number] Performed By: #### L 501.04563, L501.9520, L501.9910, L506.0400, L100.0100, L506.1000, L500.4050, L500.4100 #### [facility] [address] [place], [place], [id number] Lipid Profileon 05-06-2024 Cholesterol [Mass/Vol] 254 mg/dL High 200 [facility] Comment on above: Order Comment: Labco rp: OxLDL [id number] Result Comment: <200 mg/dL Desirable 200-240 mg/dL Borderline >240 mg/dL High Risk Performed By: #### L 501.27037, L501.9520, L501.9910, L506.0400, L100.0100, L506.1000, L500.4050, L500.4100 #### [facility] [address] [place], [address] Cholesterol in HDL [Mass/Vol] 55 mg/dL Normal [facility] Comment on above: Order Comment: Labco rp: OxLDL [id number] Result Comment: The drugs N-Acetylcysteine and Metamizole may falsely depress this assay. Reference Range HDL <40 mg/dL Low HDL Cholesterol HDL >or= 60 mg/dL High HDL Cholesterol Performed By: #### L 501.51056, L501.9520, L501.9910, L506.0400, L100.0100, L506.1000, L500.4050, L500.4100 #### [facility] [address] [place], [address] Cholesterol in LDL [Mass/Vol] 178 mg/dL High 0-130 [facility] Comment on above: Order Comment: Labco rp: OxLDL [id number] Performed By: #### L 501.62617, L501.9520, L501.9910, L506.0400, L100.0100, L506.1000, L500.4050, L500.4100 #### [facility] [address] [place], [address] Cholesterol in VLDL [Mass/Vol] 21 mg/dL Normal 5-40 [facility] Comment on above: Order Comment: Labco rp: OxLDL [id number] Performed By: #### L 501.28069, L501.9520, L501.9910, L506.0400, L100.0100, L506.1000, L500.4050, L500.4100 #### [facility] Laboratory [address] [place], [address] Triglyceride [Mass/Vol] 103 mg/dL Normal [facility] Comment on above: Order Comment: Labco rp: OxLDL [id number] Result Comment: The drugs N-Acetylcysteine and Metamizole may falsely depress this assay. Serum Triglycerides Reference Interval Normal <150 mg/dL Borderline high 150 - 199 mg/dL High 200 - 499 mg/dL Very High > or = 500 mg/dL Performed By: #### L 501.05971, L501.9520, L501.9910, L506.0400, L100.0100, L506.1000, L500.4050, L500.4100 #### [facility] Laboratory [address] [place], [address] PSA,Total - Annual Screenon 05-06-2024 PSA,TOT SCREEN 1.90 ng/mL Normal 0.00-4.00 [facility] Comment on above: Order Comment: Labco rp: OxLDL [id number] Result Comment: This test was performed using the TPSA assay method for the [employer] chemistry system. Values obtained with different assay methods cannot be used interchangably. When changing PSA assays in the course of monitoring a patient, additional sequential testing should be carried out to confirm baseline values. Performed By: #### L 501.74727, L501.9520, L506.0400 #### [facility] Laboratory [address] [place], [address] T4 Free Directon 05-06-2024 T4 FREE DIRECT 0.87 ng/dL Normal 0.76-1.46 [facility] Comment on above: Order Comment: Labco rp: OxLDL [id number] Performed By: #### L 501.40063, L501.9520, L506.0400 #### [facility] Laboratory [address] [place], [address] Thyroid Stim Hormone (TSH)on 05-06-2024 TSH 4.010 uIU/mL High 0.358-3.740 [facility] Comment on above: Order Comment: Labco rp: OxLDL [id number] Performed By: #### L 501.91698, L501.9520, L506.0400 #### [facility] Laboratory [address] [place], [address] Vitamin D,25 Hydroxyon 05-06 Vitamin D 25-OH 25.8 ng/mL Normal [facility] Comment on above: Result Comment: Aubree min D 25(OH) Status Range Deficiency <20 ng/mL (50nmol/L) Insufficiency 20 - 30 ng/mL (50 - 75 nmol/L) Sufficiency 30 - 100 ng/mL (75 - 250 nmol/L) Toxicity >100 ng/mL (>250 nmol/L) Performed By: #### L 501.97879, L501.9520, L501.9910, L506.0400, L100.0100, L506.1000, L500.4050, L500.4100 #### [facility] Laboratory [address] [place], [address] MR/BMS.IMBon 01-06-2024 MR/BMS.B [facility] [address] [facility] [place], [place] [address] OFFICE VISIT Date of Service: 01/06/24 MR#: [id number] Acct: [id number] Name: LEXUS REIS Rep #: [id number] : 1960 Provider: Dr. Davida cassidy MD Age/Sex: 63/M Location: [facility] [place] Status: Signed Intake Vital Signs 04/16/23 09:00 01/06/24 08:25 Height 5 ft 9.5 in 5 ft 9.5 in Weight: 185 lb 6 oz 179 lb BMI 26.9 26.0 BP 131/75 H 123/76 H Blood Pressure Location Lt brachial Lt brachial Position Sitting Sitting Respiration 16 Pulse 62 73 Pulse Source Monitor Monitor Temp 97.6 F L 98.6 F Temp Source Temporal Temporal Pulse Oximetry (%) 96 96 Oxygen Delivery Method room air room air Intake Visit Reasons: Annual/Physical Drug Abuse Social Worker Required: No Accompanied by: Self Is patient in pain?: No Allergies No Known Allergies Allergy (Verified 01/06/24 08:25) Medications ???Medication ???Instructions ???Recorded ???Confirmed ???Type levothyroxine 100 mcg tablet 100 mcg PO DAILY #90 tabs 12/29/23 01/06/24 Rx PFSH Medical History (Updated 01/06/24 @ 09:[address] Davida Marshall MD) Periorbital dermatitis Hypothyroidism Surgical History History of shoulder surgery Family History Other No pertinent family history Social History Smoking Status: Never smoker alcohol intake: never substance use type: does not use what type of physical activity do you participate in: bicycling frequency: 3-4 times per week HPI HPI Details: LEXUS REIS, is a 63 M who presents to the office today for annual follow-up. Patient has a history of hypothyroidism on levothyroxine 100 mcg daily. Overall he seems to be doing well. He has developed a sense of dryness around his eyes, itchiness around his eyes, not the eyes themselves. He does have an appointment next Thursday with costume technician for this. Describes it as itching, dry feeling. Other than that he had thyroid labs done recently. Unfortunately, unbeknownst to me, he was out of levothyroxine for about a month before he contacted the office. We refilled his medication and did get back on it for about a week to 10 days before the labs were actually drawn. I was unaware of this. In any event TSH was slightly high but thyroid hormones normal range. Therefore based on that additional information I would not recommend any specific change in regimen right now but repeat in 3 months. Review of systems per chart. Patient describes no chest pain, shortness of breath, wheeze, cough, congestion, fever, chills, nausea or vomiting. Urinary pattern is stable. Sometimes somewhat decreased stream but generally pretty good. Gets up perhaps once a night, depending on how much he drinks. He continues to ride bicycle, about 3 days out of the week with substantial rides he states. Otherwise a number of other events over the summer to which he rides regularly. Physical exam. Vital signs on chart. Patient has dry skin, periorbital dermatitis. On the insides of the eyelids themselves, seems to have some potentially cholesterol deposits. PERRLA. Sclera are clear. TMs are unremarkable with normal light reflexes. Canals are unremarkable. Posterior pharynx is unremarkable. Good dentition. No cervical or supraclavicular lymph nodes enlarged or tender. No clear thyromegaly. No thyroid nodules readily palpable. Lungs are without wheeze, rhonchi, rales. No E/A changes are heard. Heart is regular. Not tachycardic. No clear murmur, rub, or gallop is identified. The abdomen is soft. Bowel sounds are present. Nontender nondistended abdomen. No clear palpable masses in the abdomen. No significant leg edema. Cranial nerve examination 2 through 12 are grossly unremarkable nonlateralizing. No obvious significant skin lesions are identified. ROS Const Constitutional: No body ache, chills, excessive sweating, fatigue, fever(s), frequent falls, headache(s), snoring, weakness, weight change, sleep problems or change in appetite Eyes Eyes: No blurry vision, change in vision, eye pain or Light sensitivity ENT ENT: No abnormal hearing, ear or mastoid pain, tinnitus, nasal congestion, headache(s), neck pain or sore throat Resp Respiratory: No cough, shortness of breath, snoring or wheezing Cardio Cardiology: No chest pain at rest, chest pain with exertion, excessive sweating, shortness of breath, dyspnea on exertion, lightheadedness, orthopnea or palpitations Gastro GI: No abdominal pain, change in bowel habits, constipation, cramping, diarrhea, Vomiting blood/hematemesis, vomiting or other Genitourinary Male: No burning urination, painful urination, urinary incontinence or blood in urine M (more content not included)... Normal [facility] Free T3on 01-01-2024 Free T3 [Mass/Vol] 2.6 pg/mL Normal 2.18-3.98 [facility] Comment on above: Performed By: #### L 501.42504, L501.9520, L506.0400 #### [facility] Laboratory [address] [place], [place], [address] T4 Free Directon 01-01-2024 T4 FREE DIRECT 0.77 ng/dL Normal 0.76-1.46 [facility] Comment on above: Performed By: #### L 501.57364, L501.9520, L506.0400 #### [facility] Laboratory [address] [place], [place], [address] Thyroid Stim Hormone (TSH)on 01-01-2024 TSH 5.78 uIU/mL High 0.358-3.74 [facility] Comment on above: Performed By: #### L 501.02540, L501.9520, L506.0400 #### [facility] Laboratory [address] [place], [address] No Panel InformationOrdered By: Davida Marshall on 08-13-2023 Free Triiodothyronine (T3) pg/dL 2.4 pg/mL 2.18-3.98 [facility] Serum or plasma thyroid stim ulating hormone (TSH) measurement (units/volume)Ordered By: Davida Marshall on 08-13-2023 TSH Qn 7.84 uIU/mL 0.358-3.74 [facility] Thin prep Papanicolaou smear with manual screeningOrdered By: Davida Marshall on 08-13-2023 Thin prep Papanicolaou smear with manual screening 0.63 ng/dL 0.76-1.46 [facility] Absolute lymphocyte countOrd ered By: Davida Marshall on 04-08-2023 Lymphocytes Auto (Unsp spec) [#/Vol] 2.31 10*3/uL 0.83-4.51 [facility] Basophil percentageOrdered B y: Davida Marshall on 04-08-2023 Basophils/100 WBC (Bld) 0.5 % 0-1 [facility] Bilirubin [Mass/Vol] 1.30 mg/dL 0.20-1.00 [facility] Comment on above: For patients on eltr ombopag therapy, use of Dimension [place] TBIL is not recommended. Chloride [Moles/Vol] 106 mmol/L 98-107 [facility] Cholesterol [Mass/Vol] 277 mg/dL <200 [facility] Comment on above: <200 mg/dL Desirable 200-240 mg/dL Borderline >240 mg/dL High Risk Eosinophils/100 WBC (Bld) 1.6 % 0-5 [facility] Glucose [Mass/Vol] 99 mg/dL 74-106 [facility] Neutrophils (Bld) [#/Vol] 3.1 10*3/uL 2.0-7.7 [facility] Neutrophils/100 WBC (Bld) 49.5 % 47-70 [facility] Potassium [Moles/Vol] 4.5 mmol/L 3.5-5.1 [facility] Protein [Mass/Vol] 7.2 g/dL 6.4-8.2 [facility] Sodium [Moles/Vol] 137 mmol/L 136-145 [facility] Triglyceride [Mass/Vol] 71 mg/dL <199 [facility] Comment on above: The drugs N-Acetylcy steine and Metamizole may falsely depress this assay.Serum Triglycerides Reference Interval Normal <150 mg/dL Borderline high 150 - 199 mg/dL High 200 - 499 mg/dL Very High > or = 500 mg/dL WBC (Bld) [#/Vol] 6.2 10*3/uL 4.4-11.0 [facility] Blood erythrocytes count (nu mber/volume)Ordered By: Davida Marshall on 04-08-2023 RBC (Bld) [#/Vol] 4.93 10*6/uL 4.6-6.2 [facility] Blood hemoglobin measurement (mass/volume)Ordered By: Davida Marshall on 04-08-2023 Hemoglobin (Bld) [Mass/Vol] 15.2 g/dL 13.0-16.5 [facility] Blood lymphocytes/100 leukoc ytesOrdered By: Davida Marshall on 04-08-2023 Lymphocytes/100 WBC (Bld) 37.3 % 19-41 [facility] Blood monocytes/100 leukocyt esOrdered By: Davida Marshall on 04-08-2023 Monocytes/100 WBC (Bld) 10.8 % 0-10 [facility] Blood platelet mean volumeOr dered By: Davida Marshall on 04-08-2023 Platelet mean volume (Bld) [Entitic vol] 8.5 fL 6.2-12.0 [facility] Determination of erythrocyte mean corpuscular volume (MCV)Ordered By: Davida Marshall on 04-08-2023 MCV (RBC) [Entitic vol] 93.1 fL 80-94 [facility] Hematocrit Auto (Bld) [Volum e fraction]Ordered By: Davida Marshall on 04-08-2023 Hematocrit (Bld) [Volume fraction] 45.9 % 40-54 [facility] Laboratory - Chemistry and C hemistry - challengeOrdered By: Davida Marshall on 04-08-2023 ALP [Catalytic activity/Vol] 46 U/L 45-117 [facility] ALT [Catalytic activity/Vol] 48 U/L 16-61 [facility] CO2 [Moles/Vol] 29.0 mmol/L 21.0-32.0 [facility] Free T4 [Mass/Vol] 0.84 ng/dL 0.76-1.46 [facility] Globulin (S) [Mass/Vol] 3.4 g/dL 2.2-4.2 [facility] Urea nitrogen/Creatinine [Mass ratio] 19.1 mg/mg 10-20 [facility] Laboratory - Hematology and Cell countsOrdered By: Davida Marshall on 04-08-2023 Erythrocyte distribution width (RBC) [Entitic vol] 44.7 fL 35.1-43.9 [facility] Erythrocyte distribution width (RBC) [Ratio] 13.1 % 11.6-14.6 [facility] Immature granulocytes/100 WBC (Bld) 0.300 % 0.0-0.9 [facility] Comment on above: IG% - Immature Granu locytes (promyelocytes, myelocytes and metamyelocytes) > 1% indicates that a LEFT SHIFT is Present. MCH (RBC) [Entitic mass] 30.8 pg 27.0-32.0 [facility] Nucleated RBC/100 WBC (Bld) [Ratio] 0 % 0-5 [facility] MCHC Auto (RBC) [Mass/Vol]Or dered By: Davida Marshall on 04-08-2023 MCHC (RBC) [Mass/Vol] 33.1 g/dL 32-36 [facility] No Panel InformationOrdered By: Davida Marshall on 04-08-2023 Estimated GFR (MDRD) Amer 104 mL/min >60 [facility] Comment on above: GFR Calc Estimated GFR (MDRD) Non-Af Amer 86 mL/min >60 [facility] Comment on above: Non- GFR Calc Free Triiodothyronine (T3) pg/dL 2.6 pg/mL 2.18-3.98 [facility] Prostate Specific Antigen Screen 2.42 ng/mL 0.00-4.00 [facility] Comment on above: This test was perfor med using the TPSA assay method for the[employer] chemistry system. Values obtained with differentassay methods cannot be used interchangably.When changing PSA assays in the course of monitoring apatient, additional sequential testing should be carriedout to confirm baseline values. Thyroid Stimulating Hormone (TSH) 6.29 uIU/mL 0.358-3.74 [facility] Vitamin D 25-Hydroxy 31.6 ng/mL [facility] Comment on above: Vitamin D 25(OH) Sta tus Range Deficiency <20 ng/mL (50nmol/L) Insufficiency 20 - 30 ng/mL (50 - 75 nmol/L) Sufficiency 30 - 100 ng/mL (75 - 250 nmol/L) Toxicity >100 ng/mL (>250 nmol/L) Platelets bldOrdered By: Trina Marshall on 04-08-2023 Platelets (Bld) [#/Vol] 304 10*3/uL 150-450 [facility] Serum or plasma albumin fiorella urement (mass/volume)Ordered By: Davida Marshall on 04-08-2023 Albumin [Mass/Vol] 3.8 g/dL 3.2-5.0 [facility] Serum or plasma albumin/glob ulin mass ratioOrdered By: Davida Marshall on 04-08-2023 Albumin/Globulin [Mass ratio] 1.1 {ratio} 0.9-2.4 [facility] Serum or plasma calcium fiorella urement (mass/volume)Ordered By: Davida Marshall on 04-08-2023 Calcium [Mass/Vol] 9.1 mg/dL 8.5-10.1 [facility] Serum or plasma cholesterol in HDL measurement (mass/volume)Ordered By: Davida Marshall on 04-08-2023 Cholesterol in HDL [Mass/Vol] 57 mg/dL >40 [facility] Comment on above: The drugs N-Acetylcy steine and Metamizole may falsely depress this assay. Reference Range HDL <40 mg/dL Low HDL Cholesterol HDL >or= 60 mg/dL High HDL Cholesterol Serum or plasma cholesterol in VLDL measurement (mass/volume)Ordered By: Davida Marshall on 04-08-2023 Cholesterol in VLDL [Mass/Vol] 14 mg/dL 5-40 [facility] Serum or plasma creatinine m easurement (mass/volume)Ordered By: Davida Marshall on 04-08-2023 Creatinine [Mass/Vol] 0.94 mg/dL 0.70-1.30 [facility] Comment on above: The validity of the calculated GFR & GFRAA in patients over 70 years has not been determined. Clinical correlation is essential. Serum or plasma low density lipoprotein (LDL) cholesterol measurement (mass/volume)Ordered By: Davida Marshall on 04-08-2023 Cholesterol in LDL [Mass/Vol] 206 mg/dL 0-130 [facility] Serum or plasma urea nitroge n measurement (mass/volume)Ordered By: Davida Marshall on 04-08-2023 Urea nitrogen [Mass/Vol] 18 mg/dL 7-18 [facility] Thin prep Papanicolaou smear with manual screeningOrdered By: Davida Marshall on 04-08-2023 Thin prep Papanicolaou smear with manual screening 38 U/L 15-37 [facility] Thin prep Papanicolaou smear with manual screening 2 5-15 [facility] CNOVon 05-19-2017 CNOV Office Visit (INTMWS) MARIAJOSE REIS AM ([id number]) 1960 MDate Time Provider Acvigisvhm94/21/17 11:00 AM AUDRA SORENSEN) INTMWS During your visit today, we recorded the following information about you: Pulse Respiration Blood pressure Weight 64/minute 16/minute 126/88 85.3 kg Height 1.778 MABLE Szymanski CNS 05/28/2017 7:22 AM AddendumOUTPATIENT VISIT DATE May 19, 2017OUTPATIENT VISIT TYPENEWPRIMARY CARE PHYSICIAN:No PcpCHIEF COMPLAINT:Patient presents with:Mole: Mid back - size ANDamp; colar changesHistory of Present Illness:Lexus Reis is a 57 year old male who presents for a mole check.No outside records available at the time of his visit.He has been followed previously by PCP Dr. Luis Miguel Chilel [facility], it's beenmany years since he's been seen.Reports no chronic illnesses. [facility]Presents today for mole on his mid back. He reports this is changed size shapeand color recently. No pain, itching, drainage, bleeding from mole. Noticed byhis . Reports no history of skin cancer. No family history of skincancers. He reports limited sun exposure currently, did have sun exposure whenhe was younger. Typically covers up when outside or uses sunscreen. Reportsno use of recent sunburn or previous tanning bed use.There is no problem list on file for this patient.PAST MEDICAL HISTORYDiagnosis Date- NEGATIVE MEDICAL HISTORYPAST SURGICAL HISTORYProcedure Laterality Date- ROTATOR CUFF REPAIR 10/2016 R shoulder, October [address] [facility] [address]. Mosquera reviewed. No pertinent family history.Social HistorySubstance Use Topics- Smoking status: Never Smoker- Smokeless tobacco: Not on file- Alcohol use 1.5 oz/week 1 Cans of Beer (12oz) per week Comment: occasionalyALLERGIES: ALLERGIESNo Known AllergiesMEDICATIONS No prescriptions on file.REVIEW OF SYSTEMS:GENERAL: Negative for: Weight loss or gain, Fever or Chills, Weakness and Sleepdifficulties.Physical Examination:BP 126/88 Pulse 64 Resp 16 Ht 5' 10ANDquot; (1.78m) Wt 188 lb (85.3kg) BMI 26.98 kg/(m2).Extended Vitals not filed for this encounter.General appearance: Well appearing, alert, in no acute distress, well-hydrated,well nourished.Skin: Skin color, texture, turgor normal, multiple freckles on upper and midback+ raised lesion irregular border, irregular surface, 0.8cm diameter,brown/black in colorNeuro: Gait normal. Sensation grossly intact.Reviewed chart, outside records, testsI personally interviewed, confirmed and edited the above information ifobtained by others.TESTING:No results found for: GLUC, K, NA, CHLOR, CO2, CREAT, BUN, ANION, CANo results found for: GLUC, K, NA, CHLOR, CO2, CREAT, BUN, ANION, CA, TPROT,ALB, TBILI, ALKPHOS, AST, ALTNo results found for: HB, HCT, WBCNo results found for: CHOL, HDL, LDL, TGNo results found for: [id number] Fraction: No results foundIMPRESSION:Mr. Reis is a 57 year old man presents with skin lesion on his back,present for years, concern for possible skin cancer, referral to dermatologistfor further evaluation / treatment.After my examination and review of data, I make the following recommendations.PLAN AND RECOMMENDATIONS:1. Atypical nevi - ICD9: 216.9, ICD10: D22.9On skin of mid back has a raised lesion irregular border, irregular surface,0.8cm diameter, brown/black in color- CONSULT TO DERMATOLOGYAdvised to go to ER if develops chest pain, shortness of breath, or severeworsening of symptoms.Discussed risks, benefits, alternatives, and potential side effects ofmedications.Mr. Reis expressed understanding and agreed with the plan.Audra Sorensen, CNSReferring Provider: SELF [[id number]]Allergies As of Date: 05/19/2017(No Known Allergies)Date Reviewed: 05/19/2017Reviewed by: Genevieve Hoover LPN - Fully AssessedReason for Visit: Mole [923] Cmt: Mid back - size AND colar changesPrimary Visit Diagnosis:Atypical nevi [D22.9]Order(s):CONSULT TO DERMATOLOGY [9006] Order #: [id number]: 1Problem List As Of Date: 05/19/2017(None)Letter Text.THE [facility] HOSPITALAUTHORIZATION FOR THE RELEASE OF MEDICAL INFORMATIONFROM OTHER HEALTHCARE FACILITIESSelect [facility], [facility] [place] [address] [id number]: Lexus ReisDate of : [address] [place] [place] [address] (home) [phone] (work)Reason for Disclosure: Continuity of Care.Release Information From: Name of Provider/Facility: Dr. Luis Miguel Chilel Street: City: State : Zip: Fax: Phone: Re lease Information To: Office Receiving: MABLE Colon, VIDEO GAME CREATOR PLEASE FAX TO: [phone] hereby authorize ____to release the healthinformation indicated below that is contained in my patient records to theRecipient named above. I understand and acknowledge that this may includetreatment for physical and mental illness, alcohol/drug abuse and or HIV/AIDStest results or diagnosis. This authorization does not include permission torelease outpatient Psychotherapy Notes* as defined below. The release ofPsychotherapy Notes requires a separate authorization.REPORTS REQUESTED: ====Medical records. Dx, family hx, medications, labs, procedures etc Thi s consent is subject to revocation at any time except to the extent theaction has been taken thereon. This authorization and consent will inone year from the date of authorization written below.Your health care (or payment for care) will not be affected by whether or notyou sign this authorization. Once your health care information is released,re-disclosure of your health care information by the Recipient my no longerbe protected by law. Sig nature of Patient/Legal Guardian Printed NameDate Signed: ____/ / Relationship if not PatientIf other than patient?s signature, a copy of the legal papers verifyingauthority (e.g. Power of Pulp Grinder Feeder or Certificate) MUST accompany theauthorization when presented. Exception: parent if signing for patientunder age 18.*Psychotherapy Notes defined as notes that document private, joint, group orfamily counseling sessions that are from the rest of a patient?smedical record. Status:Closed by AUDRA HARPER on 05/19/17 [facility] PROGRESSon 05-19-2017 PROGRESS HNO ID: [id number] thor: Audra (Mable) MABLE SorensenService: (none)Author Type: Nurse SpecialistType: Progress NotesFiled: 05/28/2017 7:22 AMNote Text:OUTPATIENT VISIT DATE May 19, 2017OUTPATIENT VISIT TYPENEWPRIMARY CARE PHYSICIAN:No PcpCHIEF COMPLAINT:Patient presents with:Mole: Mid back - size AND colar changesHistory of Present Illness:Lexus Reis is a 57 year old male who presents for a mole check.No outside records available at the time of his visit.He has been followed previously by PCP Dr. Luis Miguel Chilel [facility], it'sbeen many years since he's been seen.Reports no chronic illnesses. He has had shoulder surgery within the lastyear [facility].Presents today for mole on his mid back. He reports this is changed sizeshape and color recently. No pain, itching, drainage, bleeding from mole.Noticed by his . Reports no history of skin cancer. No familyhistory of skin cancers. He reports limited sun exposure currently, didhave sun exposure when he was younger. Typically covers up when outsideor uses sunscreen. Reports no use of recent sunburn or previous tanningbed use.There is no problem list on file for this patient.PAST MEDICAL HISTORYDiagnosis Date- NEGATIVE MEDICAL HISTORYPAST SURGICAL HISTORYProcedure Laterality Date- ROTATOR CUFF REPAIR 10/2016 R shoulder, October [address] [facility] [address]. Mosquera reviewed. No pertinent family history.Social HistorySubstance Use Topics- Smoking status: Never Smoker- Smokeless tobacco: Not on file- Alcohol use 1.5 oz/week 1 Cans of Beer (12oz) per week Comment: occasionalyALLERGIES: ALLERGIESNo Known AllergiesMEDICATIONS No prescriptions on file.REVIEW OF SYSTEMS:GENERAL: Negative for: Weight loss or gain, Fever or Chills, Weakness andSleep difficulties.Physical Examination:BP 126/88 Pulse 64 Resp 16 Ht 5' 10 (1.78m) Wt 188 lb (85.3kg) BMI 26.98 kg/(m2).Extended Vitals not filed for this encounter.General appearance: Well appearing, alert, in no acute distress,well-hydrated, well nourished.Skin: Skin color, texture, turgor normal, multiple freckles on upper andmid back+ raised lesion irregular border, irregular surface, 0.8cmdiameter, brown/black in colorNeuro: Gait normal. Sensation grossly intact.Reviewed chart, outside records, testsI personally interviewed, confirmed and edited the above information ifobtained by others.TESTING:No results found for: GLUC, K, NA, CHLOR, CO2, CREAT, BUN, ANION, CANo results found for: GLUC, K, NA, CHLOR, CO2, CREAT, BUN, ANION, CA,TPROT, ALB, TBILI, ALKPHOS, AST, ALTNo results found for: HB, HCT, WBCNo results found for: CHOL, HDL, LDL, TGNo results found for: [id number] Fraction: No results foundIMPRESSION:Mr. Reis is a 57 year old man presents with skin lesion on hisback, present for years, concern for possible skin cancer, referral todermatologist for further evaluation / treatment.After my examination and review of data, I make the followingrecommendations.P JAMES AND RECOMMENDATIONS:1. Atypical nevi - ICD9: 216.9, ICD10: D22.9On skin of mid back has a raised lesion irregular border, irregularsurface, 0.8cm diameter, brown/black in color- CONSULT TO DERMATOLOGYAdvised to go to ER if develops chest pain, shortness of breath, or severeworsening of symptoms.Discussed risks, benefits, alternatives, and potential side effects ofmedications.Mr. Reis expressed understanding and agreed with the plan.MABLE Colon [facility] Encounters Encounter Date Encounter Type Care Provider Facility Start: 11-14-2024 End: 11-14-2024 ambulatory [facility] Facility:[facility] Start: 06-01-2024 Encounter for genera l adult medical examination without abnormal findings Davida Marshall [facility] Start: 05-11-2024 End: 05-11-2024 ambulatory [facility] Facility:[facility] Start: 05-06-2024 End: 05-06-2024 ambulatory [facility] Facility:[facility] Start: 01-06-2024 End: 01-06-2024 ambulatory [facility] [place]:[facility] [place] Start: 01-01-2024 End: 01-01-2024 ambulatory [facility] Facility:[facility] Start: 08-13-2023 End: 08-13-2023 ambulatory [facility] Work Phone: Start: 08-13-2023 End: 08-13-2023 Patient encounter procedure [facility] Work Phone: Start: 04-08-2023 End: 04-08-2023 ambulatory [facility] Work Phone: Start: 04-08-2023 End: 04-08-2023 Patient encounter procedure [facility] Work Phone: Start: 07-25-2022 Patient encounter status [facility] Start: 05-19-2017 End: 05-19-2017 Ambulatory AUDRA ([employer]) [facility] Immunizations Immunization Date Immunization Notes Care Provider Edilberto zuniga 03-29-2016 tetanus toxoid, redu jaswinder diphtheria toxoid, and acellular pertussis vaccine, adsorbed [facility] Payers Date Payer Category Payer Private Health Insurance [id number] 2024 Self-pay [id number] 2023 Medicare [id number] Unknown [id number] [id number] Unknown [id number] [id number] [id number] Unknown [id number] [id number] [id number] Unknown [id number] 2.16.8 [id number] Unknown [id number] 2.16.8 [id number] Unknown [id number] 2.16.8 [id number] Social History Date Type Detail Facility Start: 09-25-2020 End: 04-16-2023 Tobacco smoking status NHIS Unknown if ever smoked [facility] Start: 11-20-2017 Non-smoker [facility] Start: 1960 Sex Assigned At Male [facility] Evaluation note Note Date & Type Note Facility Evaluation note No assessment information availa ble [facility] Work Phone: Summary Purpose Family History No Family History Records Found Relationship Condition Age at Onset Recorded Date/T katie Not Specified No pertinent family history Unknown Advance Directives No Advanced Directives Records Found Advance Directive Response Recorded Date/ Time Living Will Yes November 17, 2017 9 :37am Power of Pulp Grinder Feeder Yes November 17, 2017 9:37am Advance Directive Response Recorded Date/ Time Living Will Yes November 17, 2017 8 :37am Power of Pulp Grinder Feeder Yes November 17, 2017 8:37am Chief Complaint and Reason for Visit Chief Complaint E ORDERS Additional Source Comments (unrecognized sect ion and content) No Status Records FoundNo Status Records Found INFORMATION SOURCE (unrecogn ized section and content) DATE CREATED AUTHOR 12/22/2017 [facility] DATE CREATED AUTHOR AUTHOR'S LEV DAVIS 11/24/2024 [facility] Care Teams (unrecognized sec tion and content) Team Status: Active Member Role Status Dates Dr. Davida Marshall MD Family Provider Active Dr. Davida Marshall MD Primary Care Provider Active Team Status: Inactive Member Role Status Dates Dr. Davida Marshall MD Primary Care Pro vider, Attending Provider, Referring Provider Active Goals (unrecognized section and content) Goals may be documented in a n alternate sectionGoals may be documented in an alternate section FOR RECORDS PERTAINING TO PATIENTS WHO ARE OR HAVE BEEN ENROLLED IN A CHEMICAL DEPENDENCY/SUBSTANCEABUSE PROGRAM, SOME INFORMATION MAY BE OMITTED. This clinical summary was aggregated from multiple sources. Caution should be exercised in using it in the provision of clinical care. This summary normalizes information from multiple sources, and as a consequence, information in this document may materially change the coding, format and clinical context of patient data. In addition, data may be omitted in some cases. CLINICAL DECISIONS SHOULD BE BASED ON THE PRIMARY CLINICAL RECORDS. [facility] provides no warranty or guarantee of the accuracy or completeness of information in this document.
[2025-05-29 07:24] LABS: Hematocrit 45.1 % (40-54); Hemoglobin 15.6 g/dL (13.0-16.5); Immature Granulocytes Count 0.010 X10^3/uL (0.0-0.0); Mean Corp Hgb Conc 34.6 g/dL (32-36); Mean Corpuscular Volume 91.3 fL (80-94); Mean Platelet Vol. 8.5 fl (6.2-12.0); NRBC Flagged by Analyzer 0 % (0-5); Platelet Count 266 K/mm3 (150-450); RBC Distribution Width CV 12.9 % (11.6-14.6); RBC Distribution Width SD 42.8 fl (35.1-43.9); Red Blood Count 4.94 M/mm3 (4.6-6.2); White Blood Count 5.8 K/mm3 (4.4-11.0)
[2025-05-29 08:26] LABS: AST(SGOT) 50 U/L (<=37); Alanine Aminotransfer ALT/SGPT 42 U/L (<=46); Albumin, Serum 4.1 g/dL (3.4-4.8); Alkaline Phosphatase 51 U/L (40-129); Anion Gap 9 (5-15); BUN 16 mg/dL (4-19); BUN/Creat Ratio 15.0 RATIO (10-20); Calcium,Total 9.4 mg/dL (7.6-11.0); Carbon Dioxide 26.2 mmol/L (21.0-32.0); Chloride 104 mmol/L (98-108); Cholesterol 237 mg/dL (<=200); Free T3 2.6 pg/mL (2.18-3.98); Globulin 2.6 g/dL (2.2-4.2); Glucose 105 mg/dL (70-99); Low Density Lipoprotein Calc. 162 mg/dL; PSA,Total - Annual Screen 1.79 ng/mL (0.02-4.00); Potassium 4.8 mmol/L (3.3-5.1); Triglycerides 158 mg/dL; Very Low Density Lipoprotein 32 mg/dL (5-40); Vitamin D,25 Hydroxy 29.3 ng/mL (30-100); cholesterol:hdl ratio screen 5.13
== END | disposition home or self-care (01) ==
LOC: LAB 06:36
PROVIDERS: PCP Internal Medicine; Referring Provider Internal Medicine; Visit Provider Internal Medicine
DX: Z00.00 Encounter for general adult medical examination without abnormal findings (principal); E03.9 Hypothyroidism, unspecified; E55.9 Vitamin D deficiency, unspecified; Z12.5 Encounter for screening for malignant neoplasm of prostate; E78.5 Hyperlipidemia, unspecified; Z13.220 Encounter for screening for lipoid disorders
CPT/HCPCS: 36415; 80053; 80061; 82306; 84153; 84439; 84443; 84481; 85025; G0103